=== PATIENT | female | born 1980 | race Caucasian/White ===

== ENCOUNTER 2016-07-13 09:50 | Emergency (ER) | payer MEDICAID ==
--- NOTE | ~2016-07-13 | ER ---
PATIENT'S NAME: EMERSON PEÑA [facility] AGE: 36 Y [address] ROOM: [place] [id number] LOCATION: [facility] ADMIT DATE: 07/13/2016 ER/Outpatient Report DISCHARGE DATE: 07/13/2016 FAMILY PHYSICIAN: PHYSICIAN, IAN ATTENDING PHYSICIAN: Alin Hurt CHIEF COMPLAINT: Thoughts of self-harm without active plan, chest congestion, and fever. HISTORY OF PRESENT ILLNESS: The patient presents for further evaluation of the above symptoms. She did not disclose the thoughts of self harm prior to coming back to the room. She states that she was in inpatient treatment in [place] for a significant amount of time and got out about a month ago. She had a job in [employer] which she lost because she was not going to work enough. She states that she is estranged from local family. She denies any drug use but does state that she had significant amount of alcohol intake yesterday. She also does not like her current living situation. She denies active plan for suicide but has had prior attempts per report. PAST MEDICAL HISTORY: Documented on the record and reviewed by me. SOCIAL HISTORY: Documented on the record and reviewed by me. MEDICATIONS: Documented on the record and reviewed by me. ALLERGIES: DOCUMENTED ON THE RECORD AND REVIEWED BY ME. REVIEW OF SYSTEMS: All systems were reviewed and negative except as noted in the HPI. PHYSICAL EXAMINATION: VITAL SIGNS: Blood pressure is 129/98, pulse is 101, respiratory rate is 20, temperature is 97.5, SpO2 is 95% on room air. GENERAL: Age appropriate female, in no obvious pain or respiratory distress, in obvious emotional distress, sitting upright on the exam chair. NEUROLOGIC: The patient is awake and alert. GCS is 15. No focal deficits. No asymmetry. PSYCH: The patient is sad. Thought processes are linear. She does have a very low mood and thoughts of self-harm with no active plan. HEENT: Normocephalic, atraumatic. Eyes are PERRL. Oropharynx is clear. PATIENT'S NAME: EMERSON PEÑA [facility] AGE: 36 Y [address] ROOM: [place] [id number] LOCATION: [facility] ADMIT DATE: 07/13/2016 ER/Outpatient Report DISCHARGE DATE: 07/13/2016 FAMILY PHYSICIAN: PHYSICIAN, NO ATTENDING PHYSICIAN: Alin Hurt NECK: Supple. Trachea is midline. HEART: Regular rate and rhythm with no murmurs. LUNGS: Clear to auscultation bilaterally with no rhonchi, wheezes, or rales. ABDOMEN: Soft, nontender, nondistended. No rebound or guarding. BACK: Nontender to palpation throughout. No CVA tenderness. EXTREMITIES: Warm and well perfused. No obvious abnormalities. SKIN: Warm, dry, and intact. LABORATORY DATA AND X-RAYS: Urinalysis, urine drug screen notable for methamphetamines. CBC is unremarkable. UA is notable for hematuria with no bacteria and no urinary symptoms. Salicylates are below threshold. CMS is grossly unremarkable. Alcohol, acetaminophen, and salicylates below threshold. TSH is 1.67. Urine is negative. IMPRESSION: 1. Viral upper respiratory syndrome, not consistent with active infection. 2. Amphetamine use. 3. Thoughts of self-harm without active suicidal plan. 4. Depression. EMERGENCY DEPARTMENT COURSE: The patient was seen and evaluated. Her presentation does not require antibiotics as she did recently complete same. She has a normal pulmonary exam and normal vital signs, otherwise, after accounting for emotional state. She has no evidence of upper respiratory infection active. PLAN: Recommend decongestants and fever control and follow up as needed for that issue. Regarding her thoughts of self-harm, [facility] was contacted to evaluate the patient. They found no cause for acute inpatient admission. They have recommended treatment at [facility] in [place]. She was able to secure a ride with a friend to the [facility] in [place] for further evaluation. MD MARIKA GIL/junaid /[id number] d: 07/13/168 t: 07/30/16 0853, OUTPATIENT REPORT
[~2016-07-13 09:50] MED LIST: ALKA SELTZER; B-COMPLEX WITH1 EAC1 PO; BUSPAR10 MG PO; BUSPIRONE HCL15 MG PO; COLACE100 MG PO; DESYREL100 MG PO; EFFEXOR XR150 MG PO; EFFEXOR XR75 MG PO; EFFEXOR75 MG PO; FOLIC ACID1 MG PO; KLONOPIN1 MG PO; LAMICTAL200 MG PO; LIBRIUM25 MG PO; MAG-OX-400(241400 MG PO; MIRALAX17 GM PO; PROTONIX40 MG PO; THERA-VITE W/ B1 TAB PO; THIAMINE HCL100 MG PO; TYLENOL325 MG PO; ULTRAM50 MG PO; ZOLOFT100 M1 PO
[2016-07-13 10:31] LABS: BASOPHIL % 0.6 %; EOSINOPHIL % 0.8 %; HEMATOCRIT 39.7 % (33.0-46.0); HEMOGLOBIN 12.7 g/dL (11.0-15.0); IMMATURE GRANULOCYTE % 0.2 %; LYMPHOCYTE # 1.2 K/uL (0.8-4.0); LYMPHOCYTE % 24.4 %; MCH 26.7 pg (27.0-34.0); MCV 83.6 fl (83.0-98.0); MONOCYTE # 0.4 K/uL (0.0-1.0); MONOCYTE % 7.9 %; MPV 9.5 fl (9.4-12.4); NEUTROPHIL # (ANC) 3.3 K/uL (1.8-7.8); NEUTROPHIL % 66.1 %; NRBC % 0 /100WBC (0-0.00); PLATELET COUNT 284 K/uL (150-450); RBC 4.75 M/uL (3.50-5.50); RDW-CV 16.5 % (11.9-14.6)
[2016-07-13 10:53] LABS: ALBUMIN 3.9 gm/dL (3.5-5.0); ALK PHOS 119 IU/L (33-138); ALT 19 IU/L (12-78); ANION GAP 14.6 (10.0-19.0); AST 20 IU/L (10-40); BLOOD UREA NITROGEN 10 mg/dL (6-24); CALCIUM 8.8 mg/dL (8.5-10.5); CHLORIDE 106 mMol/L (96-110); CO2 23 mMol/L (22-32); CREATININE 0.8 mg/dL (0.5-1.1); ESTIMATED GFR (MDRD EQUATION) > 60; POTASSIUM 3.6 mMol/L (3.7-5.1); SODIUM 140 mMol/L (135-145); TOTAL BILIRUBIN 0.8 mg/dL (0.0-1.5)
[2016-07-13 11:21] LABS: BILIRUBIN URINE NEGATIVE (NEGATIVE); BLOOD URINE 50 /UL (NEGATIVE); COLOR URINE YELLOW (YELLOW); GLUCOSE URINE NEGATIVE (NEGATIVE); KETONE URINE NEGATIVE (NEGATIVE); LEUKOCYTES URINE NEGATIVE /UL (NEGATIVE); NITRITE URINE NEGATIVE (NEGATIVE); PH URINE 6.5 (4.0-8.0); PROTEIN URINE 30 mg/dL (NEGATIVE); SPEC GRAVITY URINE 1.015 (1.003-1.035); TURBIDITY URINE CLEAR (CLEAR); UROBILINOGEN URINE 1 mg/dL (NORMAL)
[2016-07-13 11:25] LABS: BACTERIA URINE NEGATIVE (NEGATIVE); EPITHELIAL URINE RARE #/HPF (NEGATIVE); WBC URINE NEGATIVE #/HPF (NEGATIVE)
[2016-07-13 11:35] LABS: BARBITURATE NEGATIVE (NEGATIVE); COCAINE NEGATIVE (NEGATIVE); OPIATES NEGATIVE (NEGATIVE)
[2016-07-13 11:36] LABS: AMPHETAMINE POSITIVE (NEGATIVE)
[2016-07-22] MEDS ORDERED: ZYRTEC10 MG PO (03:40)
[2016-07-25] MEDS ORDERED: NEURONTIN100 MG PO (09:43)
[2016-07-25] MEDS ORDERED: TREXAN (REVIA)50 MG PO (09:47)
[2016-07-25] MEDS ORDERED: INDERAL10 MG PO (09:51)
[2016-08-18] MEDS ORDERED: PEPCID40 MG PO (00:41)
[2016-08-18] MEDS ORDERED: PRILOSEC20 MG PO (00:42)
[2016-08-18] MEDS ORDERED: ATIVAN 1 MG1 MG PO (00:43)
[2016-08-18] MEDS ORDERED: WELLBUTRIN XL300 M2 PO (00:44)
[2016-08-18] MEDS ORDERED: BUSPAR5 MG PO (00:45)
[2016-08-18] MEDS ORDERED: VISTARIL50 MG PO (00:47)
[2016-08-18] MEDS ORDERED: INDERAL20 MG PO (00:48)
[2016-08-18] MEDS ORDERED: PROTONIX40 MG PO (00:48)
== END 2016-07-13 13:14 | disposition disaster alternative care site (69) ==
LOC: GMED 09:50
PROVIDERS: Emergency Medicine
DX: B34.9 Viral infection, unspecified (principal); F15.90 Other stimulant use, unspecified, uncomplicated; F32.9 Major depressive disorder, single episode, unspecified
CPT/HCPCS: G0480